=== PATIENT | female | born 1985 | race Two or more races ===

== ENCOUNTER 2024-01-17 10:39 | Emergency (ER) | payer MEDICAID, OTHER ==
[~2024-01-17] VITALS: Ht 157.5 cm; Wt 90.1 kg
[2024-01-17 11:38] LABS: Urine Bacteria FEW /hpf (None Seen); Urine Blood 1+ /uL (Negative); Urine Budding Yeast OCCASIONAL /hpf (None Seen); Urine Clarity Turbid (Clear); Urine Color Yellow (Yellow); Urine Mucus FEW (None Seen); Urine Protein, UAD 2+ (Negative); Urine Specific Gravity 1.021 (1.001-1.035); Urine Urobilinogen 2 mg/dL (Negative); Urine WBC 69 /hpf (0 - 5)
[2024-01-17 11:51] LABS: Amphetamine Screen, Urine Neg (NEGATIVE); Barbiturate Scree,Urine Neg (NEGATIVE); Benzodiazephine Screen, Urine Neg (NEGATIVE); Cannabinoid Screen, Urine Neg (NEGATIVE); Cocaine Screen, Urine Neg (NEGATIVE); Opiate Scree,Urine Neg (NEGATIVE); Phencyclidine Screen, Urine Neg (NEGATIVE)
[2024-01-17 15:36] VITALS: BP 120/70
[2024-01-17] MEDS: ACETAMINOPHEN 325 MG TAB PO ONE (15:48)
[2024-01-17 16:51] VITALS: TEMP 98.9
[2024-01-17] MEDS ORDERED: NITR-87 PO (17:09)
[2024-01-17] MEDS ORDERED: HYDR-4902 PO (17:09)
[2024-01-17 17:14] VITALS: PULSE 85; RESP 18; O2SAT 99
== END 2024-01-17 17:18 | disposition home or self-care (01) ==
LOC: ER 10:39
DX: N20.0 Calculus of kidney (principal); N39.0 Urinary tract infection, site not specified; I10 Essential (primary) hypertension; Z88.8 Allergy status to other drugs, medicaments and biological substances
CPT/HCPCS: 74176; 80307; 81001; 81025

== ENCOUNTER 2024-12-06 08:48 | Emergency (ER) | payer BC, MEDICAID ==
[~2024-12-06] VITALS: Ht 157.5 cm; Wt 89.1 kg
[~2024-12-06 08:48] MED LIST: HYDR-4902 PO; NITR-87 PO
[2024-12-06 08:56] VITALS: BP 142/88; PULSE 114; RESP 18; TEMP 98.9; O2SAT 95
--- NOTE | 2024-12-06 09:27 | ED.PDOC ---
SOB-HPI HPI Comments 39-year-old female presented to the [facility] complaining of cough congestion fever chills and chest pains when she coughs for the past few days Chief Complaint: Flu like Time Seen by MD: 08:57 Primary Care Provider: LUIS Reviewed notes: Nurses Notes, Medications, Allergies Information Source: Patient Mode of Arrival: Ambulatory Severity: Moderate Timing: Days Duration: Since onset Context: At Rest PE Risk Factors: None History of: Recent URI Modifying Factors: Nothing Associated Signs and Symptoms: Fever, Cough, Nasal Congestion, Sore Throat, Chest Pain Quality: Aching Radiation: No Radiation If cough with SOB: Non-Productive, White, Yellow Past Medical History PAST MEDICAL HISTORY: Depression, HTN Surgical History: Cholecystectomy, Tubal Ligation FAMILY SERVICE ASSISTANT History: No Pertinent FAMILY SERVICE ASSISTANT History Family History Family History: Unknown Social History Smoker: Non-Smoker Alcohol: Denies ETOH Use Drugs: Denies Drug Use Lives In: Home Constitutional: reports: chills, fatigue, fever; denies: diaphoresis, malaise, sweats, weakness, others EENTM: reports: nose congestion, throat pain; denies: blurred vision, double vision, ear bleeding, ear discharge, ear drainage, ear pain, ear ringing, eye pain, eye redness, hearing loss, mouth pain, mouth swelling, nasal discharge, nose bleeding, nose pain, photophobia, tearing, throat swelling, voice changes, others Respiratory: reports: cough; denies: hemoptysis, orthopnea, SOB at rest, shortness of breath, SOB with excertion, stridor, wheezing, others Cardiovascular: reports: chest pain; denies: dizzy spells, diaphoresis, Dyspnea on exertion, edema, irregular heart beat, left arm pain, lightheadedness, palpitations, PND, syncope, others Gastrointestinal: denies: abdomen distended, abdominal pain, blood streaked bowels, constipated, diarrhea, dysphagia, difficulty swallowing, hematemesis, melena, nausea, poor appetite, poor fluid intake, rectal bleeding, rectal pain, vomiting, others Genitourinary: denies: abnormal vagina bleeding, burning, dyspareunia, dysuria, flank pain, frequency, hematuria, incontinence, pain, , vagina discharge, urgency, others Neurological: denies: dizziness, fainting, headache, left sided numbness, left sided weakness, numbness, paresthesia, pre-existing deficit, right sided numbness, right sided weakness, seizure, speech problems, tingling, tremors, weakness, others Musculoskeletal: denies: back pain, gout, joint pain, joint swelling, muscle pain, muscle stiffness, neck pain, others Integumetry: denies: bruises, change in color, change in hair/nails, dryness, laceration, lesions, lumps, rash, wounds, others Allergic/Immunocompromised: denies: Difficulty Healing, Frequent Infections, Hives, Itching, others Hematologic/Lymphatic: denies: anemia, blood clots, easy bleeding, easy bruising, swollen glands, others Endocrine: denies: excessive hunger, excessive sweating, excessive thirst, excessive urination, flushing, intolerance to cold, intolerance to heat, unexplained weight gain, unexplained weight loss, others Psychiatric: reports: depression All Other Systems: Reviewed and Negative Physical Exam General Appearance: Mild Distress, Moderate Distress HEENT: Pharyngeal Erythema Neck: Full Range of Motion, Non-Tender, Normal, Normal Inspection Respiratory: Crackles, Decreased Breath Sounds, Expiration, Inspiration, No Respiratory Distress Cardiovascular: No Edema, No JVD, No Murmur, No Gallop, Normal Peripheral Pulses, Regular Rate/Rhythm Breast Exam: Deferred Gastrointestinal: No Organomegaly, Non Tender, No Pulsatile Mass, Normal Bowel Sounds, Soft Genitalia: Deferred Pelvic: Deferred Rectal: Deferred Extremities: No calf tenderness, Normal capillary refill, Normal inspection, Normal range of motion, Non-tender, No pedal edema Neurologic: Alert, airplane navigator II-XII nml as Tested, No Motor Deficits, Normal Affect, Normal Mood, No Sensory Deficits Cerebellar Function: Normal Reflexes: Normal Skin: Dry, Normal Color, Warm Peripheral Pulses: 1+ carotid (R), 1+ carotid (L) Lymphatic: Axilla Node Tender (L) Was a procedure done? Was a procedure done?: No Differential Dx Differential Diagnosis: Bronchitis, Hypertension, Pneumonia, Pharyngitis, URI, Other Comments Influenza X-Ray, Labs, Meds, VS Vital Signs Date Time Temp Pulse Resp B/P (MAP) Pulse Ox O2 Delivery O2 Flow Rate FiO2 12/06/24 08:56 98.9 114 18 142/88 (106) 95 98.9 12/06/24 08:56 98.9 114 18 142/88 (106) 95 98.9 12/06/24 08:56 114 18 95 Room Air Lab Test 12/06/24 09:00 Range/Units Influenza Type A Antigen Negative Negative Influenza Type B Antigen Negative Negative Current Medications Medications (Trade) Dose Ordered Sig/Jarad Route Start Time Stop Time Status Last Admin Sodium Chloride 500 ml @ 500 mls/hr Q1H ONCE IV 12/06/24 10:45 12/06/24 11:44 DC 12/06/24 10:44 Ceftriaxone Sodium 50 ml @ 100 mls/hr ONCE ONCE IV 12/06/24 10:45 12/06/24 11:14 DC 12/06/24 10:46 X-Ray, Labs, Meds, VS Comment Seen in the [employer] eventful patient came in because of severe cough congestion and not feeling well also chest pain when she coughs The chest x-ray shows perihilar infiltrate and left lower lobe pneumonia Influenza a negative Influenza B negative Patient was medicated with Rocephin and hydrated Patient will be discharged home to follow up with her PCP Time of 1ST Reevaluation: 09:26 Reevaluation 1ST: Unchanged Time of 2ND Reevaluation: 11:36 Reevaluation 2ND: Unchanged Consultation: PCP Patient Education/Counseling: Diagnosis, Treatment, Prognosis, Need For Follow Up Family Education/Counseling: Diagnosis, Treatment, Prognosis, Need For Follow Up, No Family Present Departure 1 Departure Time of Disposition: 11:37 Impression: Primary Impression: Left lower lobe pneumonia Qualified Codes: J18.9 - Pneumonia, unspecified organism Additional Impression: URI with cough and congestion Disposition: 01 HOME / SELF CARE / HOMELESS Condition: Good Additional Instructions: follow up with your PCP If not better come back for re-evaluation push fluids e-Prescriptions [id number] W/ APAP (Robitussin Severe Mul... [id number] mg/10Ml) 1 Liq Liq 1 LIQ PO TID for 10 Days, #300 LIQ Prov: TATYANA TONG MD 12/06/24 Cefdinir (Cefdinir) 300 Mg Cap 1 CAP PO BID for 10 Days, #20 CAP Prov: TATYANA TONG MD 12/06/24 Discharged With: Self Critical Care Note Critical Care Time?: No Stability Stability form required: No Heart Score Heart Score: Heart Score Response (Comments) Value History N/A 0 EKG N/A 0 Age <45 0 Risk Factors 1 or 2 risk factors 1 Troponin N/A 0 Total 1 TATYANA TONG MD Dec 06, 2024 09:27
[2024-12-06 10:21] LABS: Rapid Influenza A Negative (Negative); Rapid Influenza B Negative (Negative)
[2024-12-06] MEDS: SODIUM CHLORIDE 0.9% 500 ML IV ONE (10:44)
--- NOTE | 2024-12-06 10:44 | DVH ---
EXAM: XY CHEST TWO VIEWS ROUTINE HISTORY: Congestion fever cough COMPARISON: None TECHNIQUE: Frontal and lateral views of the chest were performed. FINDINGS: There is interstitial prominence centrally and in the lung bases. No pneumothorax, plleural effusions , or consolidative infiltrates. The heart is not enlarged. No fractures are identified about the nadege ny thorax. Surgical clips in the right upper quadrant are consistent with prior cholecystectomy. IMPRESSION: Prominence of the interstitial markings in the mid to lower lungs may be due to reactive airways dise ase or mild CHF.
[2024-12-06] MEDS: cefTRIAXone 1GM/50ML D5W 50 ML IV ONE (10:46)
[2024-12-06] MEDS ORDERED: CEFD300C2 PO (11:42)
[2024-12-06] MEDS ORDERED: PHEN1LIQ50 PO (11:42)
== END 2024-12-06 11:54 | disposition home or self-care (01) ==
LOC: ER 08:48
DX: J18.9 Pneumonia, unspecified organism (principal); J06.9 Acute upper respiratory infection, unspecified; I10 Essential (primary) hypertension; F32.A Depression, unspecified; Z90.49 Acquired absence of other specified parts of digestive tract; Z98.51 Tubal ligation status
CPT/HCPCS: 71046; 87804; 96365; 99284; J0696